=== PATIENT | male | born 1980 | race Caucasian/White ===

== ENCOUNTER 2021-03-25 00:49 | Emergency (ER) | payer OTHER, SELFPAY ==
[2021-03-25] VITALS (15 sets, daily range): BP systolic 140–155; BP diastolic 93–104; PULSE 77–95; RESP 14–21; TEMP 36.5; O2SAT 95–100
--- NOTE | ~2021-03-25 | CT_ITS ---
EXAMINATION: CT abdomen pelvis wo con DATE: 03/25/2021 01:39 INDICATION: Right flank pain TECHNIQUE: Computed tomography (CT) of the abdomen and pelvis was performed without intravenous contr ast. The dose-length product (DLP) was 452.25 mGy-cm. Automated exposure control and iterative recons truction technique were employed. COMPARISON: 02/29/2012 FINDINGS: There is elevation of the left hemidiaphragm with passive atelectasis in the left lung base . The heart size is normal. The liver, spleen, pancreas, gallbladder, and adrenal glands are normal. There is a 2.5 cm cyst of the right kidney. The left kidney is unremarkable. No stones are identified in the kidneys, ureters, or bladder. There is no hydronephrosis or hydroureter. No pathologically en larged abdominal or pelvic lymph nodes are identified. There is no free intraperitoneal gas or eviden ce of bowel obstruction. The appendix is normal. A moderate volume of colonic stool is present. There are desiccated contents of the distal small bowel, suggestive of slow transit. A hemangioma is noted in the L2 vertebral body. There is a tiny fat-containing umbilical hernia. IMPRESSION: 1. No CT correlate for the patient's symptoms. Reviewed, dictated and finalized at location A. AUDITOR
--- NOTE | 2021-03-25 01:13 | ED.GENADULT ---
HPI - General Adult General Chief complaint: Back Pain/Injury Stated complaint: I think im passing a kidney stone Time Seen by Provider: 03/25/21 01:05 History of Present Illness HPI narrative: Patient 40-year-old gentleman who presents the emergency department with chief complaint of right flank pain. Patient reports that he has history of kidney stones and has been able to pass them in the past. Patient reports this evening he was playing hockey and had sudden onset of pain in the right flank area. Patient states that he is noticing that whenever he urinates he has a little bit more discomfort reports that is not improved by anything and reports has had some nausea with it as well. Related Data Allergies Allergy/AdvReac Type Severity Reaction Status Date / Time No Known Allergies Allergy Verified 03/25/21 01:07 Review of Systems Review of Systems: A 10 system review of systems was completed on the patient and is negative except for what is stated in the HPI. Nursing and ancillary documentation was reviewed. [facility] Family History Family History Mother Hypertension Family history of malignant neoplasm of kidney Father Family history of diabetes mellitus in first degree relative Sibling Family history of diabetes mellitus in first degree relative Social History Social History Smoking status: Never smoker Second hand tobacco smoke exposure: No Alcohol intake: current Substance use: never Substance use type: does not use Gender identity (if verbalized by the patient): Male Sexual Orientation (if Verbalized by the Patient): Straight or Heterosexual Exam Narrative: GENERAL: Well-appearing, well-nourished, and in no acute distress. HEAD: Normocephalic, atraumatic. EYES: PERRLA and EOMI. ENT: Nares clear, no rhinorrhea or epistaxis. Mucous membranes moist. NECK: Supple. CHEST: Clear to auscultation. No respiratory distress. HEART: Regular rate and rhythm. No murmur heard. Normal peripheral pulses. ABDOMEN: Soft, nontender, nondistended, normal active bowel sounds. EXTREMITIES: Normal range of motion. No edema. SKIN: Warm, dry, no rash. NEURO: No focal deficits. Alert and oriented x3. PSYCH: Normal mood and affect. Course Vital Signs Vital signs: Vital Signs Temperature 36.5 C 03/25/21 00:54 Pulse Rate 87 03/25/21 00:54 Respiratory Rate 16 03/25/21 00:54 Blood Pressure 155/104 H 03/25/21 00:54 Pulse Oximetry 96 03/25/21 00:54 Temperature 36.5 C 03/25/21 00:54 Pulse Rate 93 03/25/21 03:15 Respiratory Rate 20 03/25/21 03:15 Blood Pressure 146/93 H 03/25/21 02:46 Pulse Oximetry 100 03/25/21 03:15 Medical Decision Making Vital Signs Vital Signs: Vital Signs Temperature 36.5 C 03/25/21 00:54 Pulse Rate 87 03/25/21 00:54 Respiratory Rate 16 03/25/21 00:54 Blood Pressure 155/104 H 03/25/21 00:54 Pulse Oximetry 96 03/25/21 00:54 Temperature 36.5 C 03/25/21 00:54 Pulse Rate 93 03/25/21 03:15 Respiratory Rate 20 03/25/21 03:15 Blood Pressure 146/93 H 03/25/21 02:46 Pulse Oximetry 100 03/25/21 03:15 Lab Data Result diagrams: 03/25/21 01:16 03/25/21 01:17 Labs: Lab Results 03/25/21 03/25/21 03/25/21 Range/Units 01:16 01:17 02:45 WBC 9.0 (4.5-10.0) K/mm3 RBC 5.39 (4.6-6.20) M/mm3 Hgb 16.1 (14.0-18.0) g/dL Hct 46.3 (42.0-52.0) % MCV 85.9 (80-100) fl MCH 29.9 (26-34) pg MCHC 34.8 (32-36) g/dl RDW 12.8 (11.5-14.5) % Plt Count 250 (150-375) k/mm3 MPV 9.4 (7.4-10.4) fl Immature Gran % (Auto) 1.2 H (0-0.5) % Neut % (Auto) 73.0 (45.5-73.1) % Lymph % (Auto) 17.3 L (18.3-44.2) % [place] % (Auto) 7.7 (2.6-8.5) % Eos % (Auto) 0.4 (0-4.4) % Baso % (Auto) 0.4 (0.2-1.2) % Lymph # (Auto) 1.56
[2021-03-25 01:27] LABS: Basophils Percent Auto 0.4 % (0.2-1.2); Eosinophils Percent Auto 0.4 % (0-4.4); Hematocrit 46.3 % (42.0-52.0); Hemoglobin 16.1 g/dL (14.0-18.0); Immature Granulocyte Absolute 0.11 K/mm3 (0.00-0.031); Immature Granulocyte Percent A 1.2 % (0-0.5); Lymphocytes Absolute Auto 1.56 K/mm3 (0.9-3.2); Lymphocytes Percent Auto 17.3 % (18.3-44.2); Mean Corpuscular HGB Conc 34.8 g/dl (32-36); Mean Corpuscular Hemoglobin 29.9 pg (26-34); Mean Corpuscular Volume 85.9 fl (80-100); Mean Platelet Volume 9.4 fl (7.4-10.4); Monocytes Absolute Auto 0.7 K/mm3 (0.1-0.6); Monocytes Percent Auto 7.7 % (2.6-8.5); Neutrophils Absolute Auto 6.6 K/mm3 (1.3-6.7); Platelet Count Result 250 k/mm3 (150-375); Red Blood Count 5.39 M/mm3 (4.6-6.20); Red Cell Distribution Width 12.8 % (11.5-14.5)
[2021-03-25] MEDS: MORPHINE SULFATE (*CRX) 4 MG/ML INJ IV PUSH (01:29)
[2021-03-25] MEDS: ONDANSETRON INJ 4 MG/2 ML VIAL IV PUSH (01:33)
[2021-03-25 01:36] LABS: Alanine Aminotransferase 33 U/L (4-50); Albumin Level 4.6 g/dL (3.5-5.1); Alkaline Phosphatase 71 U/L (38-126); Anion Gap 9 mmol/L (8-16); Aspartate Amino Transferase 47 U/L (17-59); Bilirubin,Total 0.5 mg/dL (0.2-1.3); Blood Urea Nitrogen 15 mg/dL (9-20); Calcium 9.4 mg/dL (8.4-10.2); Carbon Dioxide 26 mmol/L (22-30); Chloride 99 mmol/L (98-107); Estimated CRCL calculation 149 ml/min; Estimated Glomerular Filt Rate > 60; Glucose 104 mg/dL (65-110); Lipase 103 U/L (23-300); Potassium 4.2 mmol/L (3.4-5.0); Sodium 134 mmol/L (137-145)
--- NOTE | 2021-03-25 01:37 | PC.NURSE ---
Pt has Hx of kidney stones in the past. started having Right sided flank pain about 1700 today while playing hockey, thought that he just pulled a muscle at first, but the pain continued to get worse over time. pain now 9/10 to right flank and radiating down into Right groin. pt is pacing around the room and unable to sit still due to pain.
--- NOTE | 2021-03-25 01:39 | PC.NURSE ---
had urinated just prior to coming into the ER. unable to void at this time,. IVF's running now. pt aware that urine sample is needed.
[2021-03-25] MEDS: SODIUM CHLORIDE 0.9% IV 1,000 ML 999 ML IV CONT (02:03)
[2021-03-25 03:05] LABS: Add Urine Microscopic? YES; Appearance Urine Clear (Clear); Bilirubin Urine Negative (Negative); Blood Urine Negative (Negative); Color Urine Yellow (Yellow); Glucose Urine UA Negative (Negative); Ketones Urine 1+ mg/dL (Negative); Leukocyte Esterase Ur Negative LEU/UL (Negative); Mucus Urine Rare /lpf; Nitrate Urine Negative (Negative); Protein Urine Negative (Negative); RBC Urine 0-2 /hpf (0-2); Urobilinogen Urine Negative mg/dL (<2.0); WBC Urine 0-3 /hpf
[2021-03-25] MEDS: KETOROLAC 30 MG/ML VIAL (*BKC) IV PUSH (03:07)
== END 2021-03-25 04:05 | disposition home or self-care (01) ==
PROVIDERS: Emergency Provider Emergency Medicine; PCP Family Medicine
DX: R10.9 Unspecified abdominal pain (principal); Z87.442 Personal history of urinary calculi
CPT/HCPCS: 36415; 74176; 80053; 81001; 83690; 85025; 96361; 96374; 96375; 99284; J1885; J2270; J2405; J7030